=== PATIENT | male | born 1980 | race Caucasian/White ===

== ENCOUNTER → 2021-01-27 | Outpatient (CLI) | payer OTHER ==
--- NOTE | 2021-01-27 13:23 | KCIC ---
STUDY: MRI of the left knee without contrast INDICATION: Chronic pain and limited range of motion. COMPARISON: None. TECHNIQUE: Multiplanar MR imaging of the left knee performed without the use of intravenous or intra- articular contrast. FINDINGS: Menisci: The lateral meniscus is intact. Small cystic foci along the periphery of the medial meniscus posterior horn and root as well as adjacent to the anterior root without an adjacent meniscal tear d efect to suggest parameniscal cysts. Cruciate ligaments: The ACL is thin but intact. Unremarkable PCL. Collateral ligaments: Intact. Tendons: Intact. Cartilage: Patellofemoral: High-grade/full-thickness chondrosis mainly involving the lateral patellar facet but also involving portions of the median ridge. Full-thickness chondrosis at the upper margin of the lat eral trochlea. Lateral compartment: Chondral thinning at the periphery of the weightbearing lateral femoral condyle as well as at the periphery of the lateral tibial plateau. Medial compartment: Chondral thinning at the periphery of the medial femoral condyle and lateral tibi al plateau. 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 Increased TT just TG distance of around 1.9 cm. Subchondral edema and cystic change mainly at the lateral aspect of the trochlea and patella. Microlobulated cystic change at the posterior and peripheral margins of the medial tibial plateau. J oint line and patellofemoral compartment osteophytes. Osteophytic excrescence dorsal to the medial me niscus posterior root. Miscellaneous: No significant knee joint effusion. Very small Fernandez's cyst. Several small soft tissue ganglia best seen tracking along the upper margin of Hoffa's fat. Mild edema at the superolateral as pect of Hoffa's fat. IMPRESSION: 1. High-grade/full-thickness chondrosis centered at the lateral aspect of the patellofemoral compart ment with associated subchondral edema and cystic change. 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 There is also mild edema of Hoffa's fat superol ateral as can be seen with impingement. 2. Chondral thinning at the periphery of the femorotibial compartments and tricompartmental osteophy te formation. 3. Microloculated cystic change at the peripheral and posterior margins of the medial tibial plateau not typical degenerative subchondral cysts. In the setting of several small soft tissue ganglion abo ut the knee these could represent unusually prominent intraosseous ganglia. An alternative but felt l ess likely consideration are osseous hemangiomas. 4. Thinned but intact ACL. Unremarkable PCL. No discrete tear of the menisci. Electronically signed by: JASMYNE STARK MD (01/27/2021 1:20 PM) [id number]
--- NOTE | 2021-01-27 13:34 | KCIC ---
STUDY: MRI of the right knee without contrast INDICATION: Chronic pain. History of meniscal surgery. COMPARISON: None. TECHNIQUE: Multiplanar MR imaging of the right knee performed without the use of intravenous or intra -articular contrast. FINDINGS: Menisci: Signal changes which could relate to prior meniscal repair at the posterior horn of the late ral meniscus. Otherwise the menisci are unremarkable. Cruciate ligaments: Thinned but intact ACL. Unremarkable PCL. Collateral ligaments: Intact. Tendons: Intact. Cartilage: Patellofemoral: Full-thickness chondral loss involving much of the lateral patellar facet. Scattered areas of chondrosis also seen to involve the median ridge and medial facet. High-grade/full-thickness chondrosis at the upper margin of the lateral trochlea. Lateral compartment: Chondral thinning at the periphery of the lateral femoral condyle and tibial sparkle teau. Medial compartment: Partial thickness chondrosis involving the medial femoral condyle and medial tibi al plateau most notably along the peripheral margin. 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 Lateral patellar tilt and trace lateral subluxation. Mildly increased TT-TG distance of approximately 1.7 cm. Tricompartmental osteophyte for mation. Scattered subchondral edema and cystic change of the patella and localized at the upper lisa n of the lateral trochlea. Subchondral cystic change out of proportion to overlying chondrosis scatte red throughout the medial more so than lateral tibial plateau. Miscellaneous: No significant knee joint effusion. Edema at the superolateral aspect of Hoffa's fat. Tracking ganglion cyst posterior to the medial tibial plateau extending to overlie the PCL. IMPRESSION: 1. High-grade and full-thickness chondrosis mainly at the lateral aspect of the patellofemoral dixie rtment with associated subchondral edema and cystic change. 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 Edema at the superolatera l aspect of Hoffa's fat as can be seen with impingement. 2. Chondral thinning at the periphery of the femorotibial compartments and tricompartmental osteophy te formation. 3. Subchondral cystic change scattered about the medial and lateral tibial plateau which is out of p roportion to the extent of overlying chondrosis. Intraosseous ganglia could account for the appearanc e especially as there is an adjacent soft tissue ganglia along the posterior margin of the medial tib ial plateau. 4. Thinned but intact ACL. Unremarkable PCL. No discrete tear of the menisci. Electronically signed by: JASMYNE STARK MD (01/27/2021 1:32 PM) [id number]
== END ==
LOC: KCIC MRI 09:53
PROVIDERS: ATTEND Orthopaedic Surgery
DX: M17.0 Bilateral primary osteoarthritis of knee (principal); M71.22 Synovial cyst of popliteal space [Baker], left knee; M25.78 Osteophyte, vertebrae; G89.29 Other chronic pain
CPT/HCPCS: 73721